=== PATIENT | female | born 1950 | race Caucasian/White ===

== ENCOUNTER 2019-02-02 07:38 | Day surgery (SDC) ==
[2019-02-02] MEDS: TETRACAINE 0.5% UNIT-DOSE OP PRN ×2 (08:28→09:39)
[2019-02-02] MEDS: BETADINE OPTH PREP OP PRN ×2 (08:28→09:39)
[2019-02-02] MEDS: CYCLOGYL 2% OPTH OP PRN ×3 (08:29→08:39)
[2019-02-02 08:37] VITALS: TEMP 97
[2019-02-02] MEDS ORDERED: LIDOCAINE 1% 20 ML MDV ID STA (08:38)
[2019-02-02] MEDS ORDERED: ZOFRAN 4 MG/2 ML IVP ONE (08:38)
[2019-02-02] MEDS ORDERED: ZOFRAN 4 MG/2 ML ONE (09:36)
[2019-02-02] MEDS ORDERED: VERSED ONE (09:36)
[2019-02-02] MEDS ORDERED: SUBLIMAZE ONE (09:36)
[2019-02-02] MEDS: DEX-MOXI-KETOR OPTH INJ 1/0.5/0.4 MG/ML IO ONE ×2 (09:39→09:45)
[2019-02-02] MEDS: LIDOCAINE 1%/PHENYLEPHRINE 1.5% BSS (SURGERY) INTRAOCULA ONE ×2 (09:39→09:45)
[2019-02-02] MEDS: BSS WITH EPINEPHRINE OP ONE ×2 (09:40→09:45)
[2019-02-04 09:22] VITALS: BP 143/68
== END 2019-02-02 10:30 | disposition home or self-care (01) ==
LOC: SURG 07:38
PROVIDERS: ATTEND Ophthalmology
DX: H25.811 Combined forms of age-related cataract, right eye (principal)